=== PATIENT | male | born 1970 | race Caucasian/White ===

== ENCOUNTER 2023-10-04 09:54 | Observation (INO) ==
[~2023-10-04 09:54] MED LIST: HYDROmorphone 1 MG/1 ML SYRINGE IV PRN; Naloxone 0.4 mg VIAL 0.4 mg/ml 1 ml VIAL IV PRN; Ondansetron 4 mg VIAL 2 MG/ML 2 ml VIAL IV PRN; fentaNYL 100 mcg/2 ml 50 MCG/ML VIAL IV PRN
[2023-10-04] MEDS ORDERED: BUPIVACAINE **LIPOSOME/PF 13.3 MG/ML (266MG/ 20ML) VIAL (RESTRICTED) INFIL ONE (10:00)
[2023-10-04] MEDS ORDERED: cefTRIAXone 2 gm/50 mL D5W 2 GM/50 ML BAG IV ONE (10:26)
[2023-10-04 10:41] LABS: Rapid COVID-19 Molecular Undetected (Undetected)
[2023-10-04] MEDS ORDERED: Ondansetron 4 mg VIAL 2 MG/ML 2 ml VIAL IV PRN (10:47)
[2023-10-04] MEDS ORDERED: Propofol 10 MG/ML 20 ML BTL ONE (12:28)
[2023-10-04] MEDS ORDERED: Rocuronium 50 mg VIAL 10 mg/ml 5 ml VIAL (50 mg) ONE ×2 (12:28→14:41)
[2023-10-04] MEDS ORDERED: Artificial Tear OPHTH.OINT 3.5 GM ONE (12:28)
[2023-10-04] MEDS ORDERED: Midazolam 5 mg/5 ml VIAL 1 mg/ml 5 ml VIAL (5 mg) ONE (12:31)
[2023-10-04] MEDS ORDERED: fentaNYL 250 mcg/5 ml 50 MCG/ML 5 ml VIAL (250 MCG) ONE (12:32)
[2023-10-04] MEDS ORDERED: Lidocaine 2% PF 5 ML VIAL ONE (12:33)
[2023-10-04] MEDS ORDERED: fentaNYL 100 mcg/2 ml 50 MCG/ML VIAL ONE ×2 (12:46→18:56)
[2023-10-04] MEDS ORDERED: Bupivacaine 0.25% SDV 30 ML ONE (13:27)
[2023-10-04] MEDS ORDERED: ceFAZolin 2 GM in NS PREMIX 2 GM/100 ML BAG IVPB ONE (13:38)
[2023-10-04] MEDS ORDERED: Buffered Lidocaine 1% SYRIN 1 ml INTRADERM ONE (13:38)
[2023-10-04] MEDS ORDERED: Lactated Ringers 1000 ml BAG 1,000 ML IV SCH (14:00)
[2023-10-04] MEDS ORDERED: Ondansetron 4 mg VIAL 2 MG/ML 2 ml VIAL ONE ×3 (14:25→18:56)
[2023-10-04] MEDS ORDERED: Dexamethasone IV 4 MG/ML VIAL 1 ml VIAL ONE (14:25)
[2023-10-04] MEDS ORDERED: HYDROmorphone 0.5 MG/0.5 ML SYRINGE ONE (14:44)
[2023-10-04] MEDS ORDERED: Sevoflurane BOTTLE ONE (15:02)
[2023-10-04] MEDS ORDERED: Acetaminophen IV 1 GM/100ML 1,000 MG/100 ML BAG IV ONE (15:55)
[2023-10-04] MEDS ORDERED: ceFAZolin VIAL VIAL ONE (17:25)
[2023-10-04] MEDS ORDERED: Levalbuterol HFA INHALER MDI ONE (18:13)
[2023-10-04] MEDS: NS 0.9% 1000 ml BAG 1,000 ML IV SCH (18:44)
[2023-10-04] MEDS ORDERED: Meperidine 50 mg/ml SYRINGE 1 ml IV PRN (18:51)
[2023-10-04] MEDS: Neomycin/Polym/Bacit TOP OINT 15 GM TOPICAL SCH ×2 (19:27→22:39)
[2023-10-04 19:41] LABS: ABS Lymphocytes 0.7 10^3/uL (1.0-4.8); ABS Monocytes 0.3 10^3/uL (0.0-1.1); ABS Neutrophils 19.4 10^3/uL (1.5-7.6); ABS Nucleated RBC 0.01 10^3/ul; Hematocrit 40.5 % (38-53); Hemoglobin 13.7 g/dL (13.2-16.3); Lymphocyte % 3.6 %; Mean Corpuscular Hemoglobin 30.5 pg (27-33); Mean Corpuscular Hgb Conc 33.7 g/dL (31-36); Mean Corpuscular Volume 90.5 fL (80-97); Mean Platelet Volume 8.2 fL (7.5-11.2); Nucleated Red Blood Cells % 0.1 %/100WBC (0.0-0.8); Platelet Count 288 10^3/uL (150-450); Red Blood Count 4.47 10^6/uL (4.06-5.63); Red Cell Distribution Width 13.2 % (12-17); White Blood Count 20.5 10^3/uL (3.6-10.2)
[2023-10-04 20:01] LABS: Calcium 8.5 mg/dL (8.6-10.3); Potassium 4.1 mmol/L (3.5-5.0); eGFR CKD-EPI 89.4 (>60)
[2023-10-04] MEDS: Budesonide NEB 0.25 MG/2 ML NEB.SOLN INH SCH (22:01)
[2023-10-04] MEDS: Magnesium Hydroxide LIQ 30 ML UDC PO SCH (22:27)
[2023-10-04] MEDS: Mometasone/Formoter 200/5 MDI INH SCH (22:35)
[2023-10-05] MEDS: NS 0.9% 1000 ml BAG 1,000 ML IV SCH (02:38)
[2023-10-05] MEDS: Mometasone/Formoter 200/5 MDI INH SCH (08:18)
[2023-10-05] MEDS: Budesonide NEB 0.25 MG/2 ML NEB.SOLN INH SCH (08:22)
[2023-10-05] MEDS: Magnesium Hydroxide LIQ 30 ML UDC PO SCH (10:16)
[2023-10-05] MEDS: Neomycin/Polym/Bacit TOP OINT 15 GM TOPICAL SCH (10:17)
[2023-10-05 10:32] VITALS: BP 121/66
== END 2023-10-05 13:30 | disposition home or self-care (01) ==
LOC: SSU 09:54 → OR 09:54
PROVIDERS: ADMIT Urology; ATTEND Urology